=== PATIENT | female | born 1940 ===

== ENCOUNTER 2016-10-16 08:37 | Day surgery (SDC) | payer MEDICARE, OTHER ==
[2016-10-11 09:03] VITALS: BMI 37.5
[2016-10-16] MEDS ORDERED: Propofol 10 mg/ml Inj (20 ML) ONE (09:11)
[2016-10-16 10:42] VITALS: O2SAT 99
[2016-10-16] MEDS ORDERED: Sodium Chloride 0.9% 1,000 ML IV SCH (10:45)
[2016-10-16 11:28] VITALS: BP 129/61; PULSE 65; RESP 16; TEMP 97.8
== END 2016-10-16 12:05 | disposition home or self-care (01) ==
LOC: ENDO 08:37
PROVIDERS: ATTEND Internal Medicine
DX: D50.9 Iron deficiency anemia, unspecified (principal); K63.5 Polyp of colon; K62.1 Rectal polyp; K57.30 Diverticulosis of large intestine without perforation or abscess without bleeding; K64.8 Other hemorrhoids; E11.9 Type 2 diabetes mellitus without complications; I10 Essential (primary) hypertension
CPT/HCPCS: 45380; 82948; 88305; J2704; J3010; J7040

== ENCOUNTER 2017-12-10 06:42 | Day surgery (SDC) | payer MEDICARE, OTHER ==
[2017-12-07 10:11] VITALS: BMI 37.8
--- NOTE | 2017-12-08 12:54 | HP ---
DATE OF EXAM: REASON FOR ADMISSION: Left heart cath, possible angioplasty. BRIEF CLINICAL HISTORY: This is a 77-year-old female, of Dr. Winters, with past medical history of type 2 diabetes mellitus, hypertension, obesity, nonobstructive coronary artery disease, came with complaint of chest pain, shortness of breath. The patient underwent a stress test, was abnormal, so the patient is scheduled for elective cardiac cath and possible angioplasty. PAST MEDICAL HISTORY: Significant for diabetes, hypertension, hyperlipidemia, obesity, history of cardiac catheterization in 2010 or 2011, known history of coronary artery disease, complaining of mild shortness of breath and palpitation and pressure in the chest. CURRENT MEDICATIONS: The patient is taking gabapentin 2 tablets daily, ascorbic acid, levothyroxine, irbesartan 300 mg daily, insulin, glyburide, Inspra, hydrochlorothiazide, metformin. ALLERGIES: NO KNOWN DRUG ALLERGIES. RECENT CARDIAC WORKUP: As follows: The patient had nuclear stress test, Lexiscan dated 11/15/2017 that shows ejection fraction of 78%, abnormal stress myocardial perfusion study, partially reversible anteroseptal defect suggestive of ischemia in comparison with the last study dated 08/13/2013, the defect appears more prominent and partially reversible in the current study. The patient had also an echocardiogram on 11/15/2017 that shows normal LV size, ejection fraction of 65%, trace mitral regurgitation, trace tricuspid regurgitation, RV systolic pressure of 27. Normal IVC. No pericardial effusion. PHYSICAL EXAMINATION: VITAL SIGNS: Weight of the patient 220 pounds, height of the patient is 5 feet 4 inches, body mas index 37.1 kg/m2. HEENT: PERRLA. Intact. NECK: Supple. No carotid bruit or thyromegaly. CHEST: Clear to auscultation. HEART: S1, S2 regular. ABDOMEN: Soft. EXTREMITIES: Clubbing and cyanosis negative. LABORATORY DATA: Blood workup is pending. IMPRESSION: Abnormal stress test, new since 2011, history of non-obstructive coronary artery disease in the past, cardiac catheterization in 2010, diabetes, hypertension, hyperlipidemia, obesity, trace tricuspid regurgitation, trace mitral regurgitation. RECOMMENDATION: We will follow the blood workup. If everything is normal, we will load with aspirin and Plavix. Risks, benefits, and alternatives discussed with the patient, and the patient's , Dr. Winters. The patient will proceed for cardiac catheterization. Further recommendation after cardiac catheterization. We will follow with you. Thank you, Dr. Nielson for providing us the opportunity in taking care of the patient, Sonja Winters. Zack Doran MD
[2017-12-10 07:44] LABS: BASO # 0.04 K/mm3 (0.0-2.0); BASO % 0.6 % (0.0-3.0); EOS # 0.3 (0.0-0.7); EOS % 4.5 % (1.5-5.0); GRAN # 3.24 (1.4-6.5); GRAN % 50.9 % (50.0-68.0); HEMOGLOBIN 11.6 g/dL (12.0-16.0); LYMPH # 2.1 (1.2-3.4); LYMPH % 33.2 % (22.0-35.0); MEAN CELL VOLUME 82.8 fl (80.0-105.0); MEAN CORPUSCULAR HEMOGLOBIN 26.7 pg (25.0-35.0); MEAN CORPUSCULAR HGB CONC 32.2 g/dl (31.0-37.0); MEAN PLATELET VOLUME 10.1 fl (7.0-11.0); MONO # 0.7 (0.1-0.6); MONO % 10.8 % (1.0-6.0); RBC 4.35 10^6/uL (3.5-6.1); RED CELL DISTRIBUTION WIDTH 14.1 % (11.5-14.5); WHITE BLOOD COUNT 6.4 10^3/ul (4.5-11.0)
[2017-12-10 07:52] LABS: BLOOD UREA NITROGEN 15 mg/dL (7-21); CALCIUM 9.6 mg/dL (8.4-10.5); GFR AFRICAN-AMERICAN > 60; GFR NON-AFRICAN AMERICAN 54; HDL CHOLESTEROL 38 mg/dL (29-60)
[2017-12-10 07:56] LABS: INR 1.03 (0.93-1.08); PARTIAL THROMBOPLASTIN TIME 27.7 Seconds (25.1-36.5); PROTHROMBIN TIME 11.8 SECONDS (9.4-12.5)
[2017-12-10 08:02] LABS: LDL CHOLESTEROL 84 mg/dL (0-129)
[2017-12-10 08:23] VITALS: RESP 18
[2017-12-10] MEDS ORDERED: Iodixanol 320 MG/ML 200 ML BOTTLE IV ONE (09:02)
[2017-12-10] MEDS ORDERED: Lidocaine 2% Inj (20ml) ONE (09:03)
[2017-12-10] MEDS ORDERED: Nitroglycerin 50mg in D5W 50 MG/250 ML BOTTLE IV ONE (09:04)
[2017-12-10] MEDS ORDERED: Verapamil 2 ML ONE (09:04)
[2017-12-10] MEDS ORDERED: Midazolam 2 MG/2 ML VIAL ONE (09:24)
[2017-12-10] MEDS ORDERED: Bacitracin 500 Units/gm Oint Foilpak UD TOP ONE (10:16)
[2017-12-10] MEDS ORDERED: Sodium Chloride 0.9% 1,000 ML IV SCH (10:30)
[2017-12-10 10:46] VITALS: TEMP 97.6
--- NOTE | 2017-12-10 11:46 | CPOSTOP ---
DATE: 12/10/2017 CARDIOVASCULAR LAB, POST PROCEDURE NOTE DICTATING PHYSICIAN: Zack Doran MD. SLOT SHIFT MANAGER: SHAHEEN Tellez. TYPE OF ANESTHESIA USED: Moderate conscious sedation, total 1 mg of Versed, 50 of fentanyl given. PRE-PROCEDURE DIAGNOSES: Unstable angina, abnormal stress test, hypertension. PROCEDURE PERFORMED: Left heart catheterization. FINDINGS: Mild LAD, this is 30% to 40% stenosis. FINAL DIAGNOSIS: Single vessels mild nonobstructive coronary artery disease. POST PROCEDURE CONDITION: Patient's condition is stable. VASCULAR ACCESS SITE: Left radial. CLOSURE DEVICE: TR band. TOTAL RADIATION DOSE: 8071.2 milligray unit. FLUORO TIME: 2.7 minutes. Zack Doran MD MTDD
[2017-12-10 12:21] VITALS: BP 130/52; PULSE 61; O2SAT 98
[2017-12-10] MEDS ORDERED: Bacitracin 500 Units/gm Oint Foilpak UD ONE (12:32)
--- NOTE | 2017-12-10 15:52 | CARD ---
APPROVED REPORT Procedure(s) performed: Left Heart Catheterization HISTORY The patient is a 77 year-old female with a history of : most recent EF: 76%. (EF Method: RADIONUCLIDE), diabetes mellitus with insulin treatment , previous diagnostic cath, hypertension . INDICATION The indication(s) include : positive stress test. CASE TECHNIQUE The patient was brought electively to the Cardiac Catheterization Laboratory in a fasting state and was prepped and draped in a sterile manner. The left wrist was infiltrated with 2% Lidocaine subcutaneous anesthesia. A 6FR [employer] ACCESS KIT sheath was inserted into the left radial artery without difficulty. Coronary angiography was performed using coronary diagnostic catheters. The left coronary system was accessed and visualized with a Diagnostic ,5 Fr JL 4 catheter. The right coronary system was accessed and visualized with a Diagnostic ,5F JR 4 CATH DXT 100 CM catheter. The left ventricle was accessed and visualized with a 5F PIGTAIL 145 CATH DXT 110 CM catheter. Left ventricular/Aortic Valve gradient assessed on pullback. Closure device was deployed with a Fr TR Band (Large) without any complications. Vessel Analysis The patient's coronary anatomy is right dominant. The left main coronary artery is a large size vessel with diffuse calcification noted throughout this vessel and without significant stenosis. The left main bifurcates to the left anterior descending and circumflex. The left anterior descending artery is a large size vessel with diffuse calcification noted throughout this vessel and without significant stenosis. There is a 30% stenosis in the mid segment. The first diagonal branch is a small size vessel with diffuse calcification noted throughout this vessel and with significant stenosis. There is a 55% stenosis in the mid segment. diffusely diseased, but no focal flow limiting stenosis The circumflex artery is a large size vessel with diffuse calcification noted throughout this vessel and without significant stenosis. The first obtuse marginal branch is a medium size vessel with diffuse calcification noted throughout this vessel and without significant stenosis. The second obtuse marginal branch is a large size vessel with diffuse calcification noted throughout this vessel and without significant stenosis. The third obtuse marginal branch is a small size vessel with diffuse calcification noted throughout this vessel and without significant stenosis. The right coronary artery is a large size vessel with diffuse calcification noted throughout this vessel and without significant stenosis. Very tortous vessel The right posterior descending artery is a medium size vessel with diffuse calcification noted throughout this vessel and without significant stenosis. The right posterolateral branch is a medium size vessel with diffuse calcification noted throughout this vessel and without significant stenosis. Left Ventricle The left ventricle is normal in size with Normal contractility. There was no cardiomyopathy. The left ventricular ejection fraction is estimated to be 60-65%. The left ventricular end diastolic pressure is 20 mmHg. There was no gradient across the aortic valve upon pullback. Conclusion Non obstructive CAD limited to D1 55% diffusely diseased, small calibre vessel. Preserved LV Fx, EF-60-65%, EDP-20 mmof hg. Recommendations Aggressive Medical TherapyCardiac Risk Reduction Program Weight Loss Reduction Program Cc; Dr. Nielson
--- NOTE | 2017-12-10 22:43 | CARD ---
APPROVED REPORT EKG Measurement Heart [id number] MD [id number] <Conclusion> Normal sinus rhythm Low voltage QRS Cannot rule out Anterior infarct, age undetermined Abnormal ECG
== END 2017-12-10 14:30 | disposition home or self-care (01) ==
LOC: CATH 06:42
PROVIDERS: ATTEND Internal Medicine Cardiovascular Disease
DX: I25.110 Atherosclerotic heart disease of native coronary artery with unstable angina pectoris (principal); E11.9 Type 2 diabetes mellitus without complications; I10 Essential (primary) hypertension; Z79.4 Long term (current) use of insulin; R94.39 Abnormal result of other cardiovascular function study; E66.9 Obesity, unspecified; Z68.37 Body mass index [BMI] 37.0-37.9, adult; I08.1 Rheumatic disorders of both mitral and tricuspid valves; E78.5 Hyperlipidemia, unspecified
CPT/HCPCS: 36415; 80048; 80061; 85025; 85610; 85730; 86850; 86900; 93005; 93458; 99152; 99153; C1769; C1887; J1644 ×2; J1940; J2250; J3010; J7030 ×2; Q9966

== ENCOUNTER 2018-09-04 14:10 | Outpatient (CLI) | payer MEDICARE, OTHER | END 2018-09-04 14:11 | disposition home or self-care (01) | LOC: RAD 14:11 ==